=== PATIENT | male | born 1985 | race Caucasian/White ===

== ENCOUNTER 2019-04-27 18:17 | Observation (INO) ==
[2019-04-27] MEDS ORDERED: diazePAM 10 MG/2 ML SYRINGE IVP ONE (18:24)
[2019-04-27] MEDS ORDERED: Thiamine (B-1) 100 MG, Folic Acid 1 MG, MVI, adult with vitamin K 10 ML in 0.9 % Sodi... IVPB SCH (18:30)
[2019-04-27 18:49] LABS: Basophils # 0.1 K/mcL (0.0-0.2); Basophils % 0.6 %; Eosinophils # 0.4 K/mcL (0.0-0.6); Eosinophils % 4.7 %; Hemoglobin 16.3 g/dL (12.9-16.9); Immature Granulocytes % 0.4 % (0-4); Lymphocytes # 1.7 K/mcL (0.6-4.6); Lymphocytes % 19.5 %; Mean Corpuscular HGB Conc 34.7 g/dL (31.6-35.5); Mean Corpuscular Volume 92.3 fL (83.0-100.0); Mean Platelet Volume 8.7 fL (9.4-12.4); Monocytes # 0.4 K/mcL (0.0-1.3); Monocytes % 5.1 %; Platelet Count 260 K/mcL (140-400); Red Blood Count 5.09 M/mcL (4.19-5.50); Red Cell Distribution Width 14.3 % (11.5-14.5); Segmented Neutrophils % 69.7 %; White Blood Count 8.6 K/mcL (4.3-11.1)
[2019-04-27 19:10] LABS: Alanine Aminotransferase 19 Units/L (7-52); Albumin 4.5 g/dL (3.5-5.7); Albumin/Globulin Ratio 1.7 (1.1-2.2); Alkaline Phosphatase 114 Units/L (34-104); Aspartate Amino Transferase 21 Units/L (13-39); BUN/Creatinine Ratio 8 (6-26); Blood Urea Nitrogen 9 mg/dL (6-20); Calcium 9.3 mg/dL (8.6-10.3); Carbon Dioxide 23 mEq/L (23-29); Chloride 105 mEq/L (98-107); Creatine Kinase 171 Units/L (30-223); Globulin 2.6 g/dL (2.4-3.5); Glucose 117 mg/dL (70-105); Lipase 6 Units/L (11-82); Magnesium 1.9 mg/dL (1.6-2.6); Osmolality,Calculated 282 (280-300); Sodium 136 mEq/L (136-145); Total Protein 7.1 g/dL (6.4-8.9); eGFR For African Americans > 60 (> 60); eGFR For Non-African Americans > 60 (> 60)
[2019-04-27] MEDS ORDERED: Ibuprofen 800 MG TABLET PO ONE (19:41)
[2019-04-27] MEDS ORDERED: *HR* LORazepam 2 MG/ML VIAL IVP PRN ×2 (20:51)
[2019-04-27] MEDS: Nicotine 14 MG PATCH.TD24 TD SCH (21:34)
[2019-04-27] MEDS: *HR* LORazepam 2 MG/ML VIAL IVP PRN (21:34)
[2019-04-27 23:22] LABS: Hepatitis B Surface Antigen Nonreactive (Nonreactive)
[2019-04-27 23:51] LABS: Amphetamine Screen,Urine Positive ng/mL (Cutoff=1000); Barbiturate Screen,Urine Negative ng/mL (Cutoff=200); Benzodiazepines Screen,Urine Positive ng/mL (Cutoff=200); Cannabinoid Screen,Urine Negative ng/mL (Cutoff = 50); Cocaine Screen,Urine Negative ng/mL (Cutoff= 300); Opiate Screen,Urine Negative ng/mL (Cutoff=300); Phencyclidine Screen,Urine Negative ng/mL (Cutoff=25)
[2019-04-27 23:51] LABS: HIV-1&2 Antibody & p24 Ag Nonreactive (Nonreactive); Hepatitis C Virus Antibody Nonreactive (Nonreactive)
[2019-04-27 23:52] LABS: Hepatitis B Core IgM Nonreactive (Nonreactive)
[2019-04-27 23:53] LABS: Hepatitis A Antibody IgM Nonreactive (Nonreactive)
[2019-04-28] MEDS: *HR* LORazepam 2 MG/ML VIAL IVP PRN ×2 (00:53→04:15)
[2019-04-28] MEDS: *HR* Heparin 5,000 UNIT/ML VIAL SQ SCH ×3 (05:25→22:35)
[2019-04-28] MEDS: Nicotine 14 MG PATCH.TD24 TD SCH (09:08)
[2019-04-28] MEDS ORDERED: Thiamine (B-1) 100 MG, Folic Acid 1 MG, MVI, adult with vitamin K 10 ML in 0.9 % Sodi... IVPB SCH (18:00)
[2019-04-29] MEDS: *HR* Heparin 5,000 UNIT/ML VIAL SQ SCH ×2 (06:34→06:38)
[2019-04-29] MEDS: Nicotine 14 MG PATCH.TD24 TD SCH (08:28)
[2019-04-29 11:21] VITALS: BP 127/83
== END 2019-04-29 13:35 | disposition home or self-care (01) ==
LOC: 3BNU 18:17 → EMEROOARM 18:17 → SUATTDRO 19:34 → 3BNU 20:00
PROVIDERS: ADMIT Internal Medicine; ATTEND Family Medicine

== ENCOUNTER 2019-09-11 17:26 | Observation (INO) ==
[2019-09-11] MEDS ORDERED: diazePAM 10 MG/2 ML SYRINGE IVP ONE (19:50)
[2019-09-11 20:13] LABS: Basophils # 0.1 K/mcL (0.0-0.2); Basophils % 0.6 %; Eosinophils # 0.4 K/mcL (0.0-0.6); Eosinophils % 3.8 %; Hematocrit 46.8 % (37.5-50.1); Hemoglobin 16.6 g/dL (12.9-16.9); Immature Granulocytes % 0.3 % (0-4); Lymphocytes # 2.7 K/mcL (0.6-4.6); Lymphocytes % 23.2 %; Mean Corpuscular HGB Conc 35.5 g/dL (31.6-35.5); Mean Corpuscular Volume 87.3 fL (83.0-100.0); Mean Platelet Volume 8.9 fL (9.4-12.4); Monocytes # 0.5 K/mcL (0.0-1.3); Monocytes % 4.6 %; Neutrophils # 7.9 K/mcL (1.6-8.9); Platelet Count 349 K/mcL (140-400); Red Blood Count 5.36 M/mcL (4.19-5.50); Red Cell Distribution Width 14.3 % (11.5-14.5); Segmented Neutrophils % 67.5 %; White Blood Count 11.7 K/mcL (4.3-11.1)
[2019-09-11 20:34] LABS: Alanine Aminotransferase 18 Units/L (7-52); Albumin/Globulin Ratio 1.6 (1.1-2.2); Alkaline Phosphatase 107 Units/L (34-104); Aspartate Amino Transferase 17 Units/L (13-39); BUN/Creatinine Ratio 10 (6-26); Bilirubin,Total 0.3 mg/dL (0.3-1.0); Blood Urea Nitrogen 9 mg/dL (6-20); Calcium 8.9 mg/dL (8.6-10.3); Carbon Dioxide 25 mEq/L (23-29); Chloride 109 mEq/L (98-107); Ethanol 99 mg/dL (Less than 10); Globulin 2.5 g/dL (2.4-3.5); Glucose 94 mg/dL (70-105); Magnesium 1.9 mg/dL (1.6-2.6); Osmolality,Calculated 298 (280-300); Potassium 3.7 mEq/L (3.5-5.1); Sodium 145 mEq/L (136-145); Total Protein 6.5 g/dL (6.4-8.9); eGFR For African Americans > 60 (> 60); eGFR For Non-African Americans > 60 (> 60)
[2019-09-11 20:41] LABS: Troponin I < 0.03 ng/mL (< 0.04)
[2019-09-11] MEDS: Thiamine (B-1) 100 MG, Folic Acid 1 MG, MVI, adult with vitamin K 10 ML in 0.9 % Sodi... IVPB SCH (20:44)
[2019-09-11] MEDS ORDERED: 0.9 % Sodium Chloride 500 ML IVC ONE (21:54)
[2019-09-11] MEDS ORDERED: *HR* LORazepam 2 MG/ML VIAL IVP PRN ×2 (22:21)
[2019-09-11 22:46] LABS: Amphetamine Screen,Urine Positive ng/mL (Cutoff=1000); Barbiturate Screen,Urine Negative ng/mL (Cutoff=200); Benzodiazepines Screen,Urine Positive ng/mL (Cutoff=200); Cannabinoid Screen,Urine Negative ng/mL (Cutoff = 50); Cocaine Screen,Urine Negative ng/mL (Cutoff= 300); Opiate Screen,Urine Negative ng/mL (Cutoff=300); Phencyclidine Screen,Urine Negative ng/mL (Cutoff=25)
[2019-09-11] MEDS ORDERED: Naloxone 0.4 MG/ML INJ IVP PRN (22:49)
[2019-09-11] MEDS ORDERED: *HR* Promethazine 25 MG/ML VIAL IVP PRN (22:49)
[2019-09-11 22:51] LABS: Amylase 57 Units/L (29-103); Lipase 27 Units/L (11-82)
[2019-09-11 23:02] LABS: Bilirubin,Urine Negative (Negative); Blood,Urine Negative (Negative); Clarity,Urine Clear (Clear); Color,Urine Yellow (Yellow); Glucose,Urine (UA) Normal (Normal); Ketones,Urine Negative (Negative); Leukocyte Esterase,Urine Negative (Negative); Nitrite,Urine Negative (Negative); Protein,Urine Negative (Neg-Trace); Specific Gravity,Urine 1.026 (1.010-1.025); Urobilinogen,Urine Normal (Normal)
[2019-09-12 00:38] LABS: Adenovirus Not Detected (Not Detect); Bordetella Pertussis Not Detected (Not Detect); Chlamydophila pneumoniae Not Detected (Not Detect); Coronavirus 229E Not Detected (Not Detect); Coronavirus HKU1 Not Detected (Not Detect); Coronavirus NL63 Not Detected (Not Detect); Coronavirus OC43 Not Detected (Not Detect); Human Metapneumovirus Not Detected (Not Detect); Human Rhinovirus/Enterovirus Not Detected (Not Detect); Influenza A Subtype 2009 H1 Not Detected (Not Detect); Influenza B Not Detected (Not Detect); Mycoplasma pneumoniae Not Detected (Not Detect); Parainfluenza Virus 1 Not Detected (Not Detect); Parainfluenza Virus 2 Not Detected (Not Detect); Parainfluenza Virus 3 Not Detected (Not Detect); Parainfluenza Virus 4 Not Detected (Not Detect); Respiratory Syncytial Virus Not Detected (Not Detect)
[2019-09-12] MEDS: 0.9 % Sodium Chloride 1,000 ML IVC SCH (03:27)
[2019-09-12] MEDS: Nicotine 14 MG PATCH.TD24 TD SCH ×2 (03:27→10:58)
[2019-09-12] MEDS: *HR* Heparin 5,000 UNIT/ML VIAL SQ SCH ×3 (06:10→19:31)
[2019-09-12 10:38] LABS: Hematocrit 45.4 % (37.5-50.1); Hemoglobin 15.1 g/dL (12.9-16.9); Mean Corpuscular HGB Conc 33.3 g/dL (31.6-35.5); Mean Corpuscular Hemoglobin 30.5 pg (28.0-33.3); Mean Corpuscular Volume 91.7 fL (83.0-100.0); Mean Platelet Volume 8.9 fL (9.4-12.4); Platelet Count 261 K/mcL (140-400); Red Blood Count 4.95 M/mcL (4.19-5.50); Red Cell Distribution Width 14.3 % (11.5-14.5); White Blood Count 8.8 K/mcL (4.3-11.1)
[2019-09-12 10:57] LABS: BUN/Creatinine Ratio 11 (6-26); Blood Urea Nitrogen 9 mg/dL (6-20); Calcium 8.2 mg/dL (8.6-10.3); Carbon Dioxide 27 mEq/L (23-29); Chloride 111 mEq/L (98-107); Glucose 84 mg/dL (70-105); Osmolality,Calculated 290 (280-300); Potassium 4.2 mEq/L (3.5-5.1); Sodium 141 mEq/L (136-145); eGFR For African Americans > 60 (> 60); eGFR For Non-African Americans > 60 (> 60)
[2019-09-12] MEDS: hydrOXYzine pamoate 25 MG CAPSULE PO SCH ×3 (11:37→20:02)
[2019-09-12] MEDS: BuPROPion SR (12 HR) 150 MG TABLET PO SCH ×2 (11:37→20:02)
[2019-09-12] MEDS: OXcarbazepine 150 MG TABLET PO SCH ×2 (11:38→20:01)
[2019-09-12] MEDS: Thiamine (B-1) 100 MG, Folic Acid 1 MG, MVI, adult with vitamin K 10 ML in 0.9 % Sodi... IVPB SCH (17:06)
[2019-09-12] MEDS: *HR* LORazepam 2 MG/ML VIAL IVP PRN (20:08)
[2019-09-13] MEDS: *HR* Heparin 5,000 UNIT/ML VIAL SQ SCH ×2 (01:04→13:42)
[2019-09-13] MEDS: Nicotine 14 MG PATCH.TD24 TD SCH (08:11)
[2019-09-13] MEDS: OXcarbazepine 150 MG TABLET PO SCH (08:12)
[2019-09-13] MEDS: BuPROPion SR (12 HR) 150 MG TABLET PO SCH (08:12)
[2019-09-13] MEDS: hydrOXYzine pamoate 25 MG CAPSULE PO SCH ×2 (08:12→13:45)
[2019-09-13] MEDS ORDERED: 0.9 % Sodium Chloride 1,000 ML ONE (08:14)
[2019-09-13] MEDS: 0.9 % Sodium Chloride 1,000 ML IVC SCH (08:17)
[2019-09-13] MEDS: *HR* LORazepam 2 MG/ML VIAL IVP PRN ×2 (13:45→17:49)
[2019-09-13 15:56] VITALS: BP 118/72
[2019-09-13] MEDS: Thiamine (B-1) 100 MG, Folic Acid 1 MG, MVI, adult with vitamin K 10 ML in 0.9 % Sodi... IVPB SCH (17:35)
[2019-09-13 17:39] LABS: Hematocrit 44.5 % (37.5-50.1); Hemoglobin 15.9 g/dL (12.9-16.9); Mean Corpuscular HGB Conc 35.7 g/dL (31.6-35.5); Mean Corpuscular Hemoglobin 30.9 pg (28.0-33.3); Mean Corpuscular Volume 86.4 fL (83.0-100.0); Mean Platelet Volume 8.7 fL (9.4-12.4); Platelet Count 284 K/mcL (140-400); Red Blood Count 5.15 M/mcL (4.19-5.50); Red Cell Distribution Width 13.8 % (11.5-14.5); White Blood Count 8.8 K/mcL (4.3-11.1)
[2019-09-13 18:02] LABS: BUN/Creatinine Ratio 7 (6-26); Blood Urea Nitrogen 7 mg/dL (6-20); Calcium 8.7 mg/dL (8.6-10.3); Carbon Dioxide 25 mEq/L (23-29); Chloride 107 mEq/L (98-107); Glucose 124 mg/dL (70-105); Osmolality,Calculated 287 (280-300); Potassium 3.7 mEq/L (3.5-5.1); Sodium 139 mEq/L (136-145); eGFR For African Americans > 60 (> 60); eGFR For Non-African Americans > 60 (> 60)
== END 2019-09-13 18:45 | disposition left against medical advice (07) ==
LOC: EMEROOARM 17:26 → CDU 17:26 → 3BNU 09-12 16:35
PROVIDERS: ADMIT Internal Medicine; ATTEND Internal Medicine

== ENCOUNTER 2019-09-22 12:50 | Observation (INO) ==
[2019-09-22] MEDS ORDERED: *HR* LORazepam 2 MG/ML VIAL IVP ONE (13:02)
[2019-09-22] MEDS ORDERED: Ondansetron 4 MG/2 ML VIAL IVP ONE (13:02)
[2019-09-22] MEDS ORDERED: 0.9 % Sodium Chloride 1,000 ML IVC ONE (13:02)
[2019-09-22 13:24] LABS: Basophils # 0.1 K/mcL (0.0-0.2); Basophils % 0.8 %; Eosinophils # 0.6 K/mcL (0.0-0.6); Eosinophils % 4.2 %; Hematocrit 45.3 % (37.5-50.1); Hemoglobin 16.2 g/dL (12.9-16.9); Immature Granulocytes % 0.3 % (0-4); Lymphocytes % 23.3 %; Mean Corpuscular HGB Conc 35.8 g/dL (31.6-35.5); Mean Corpuscular Volume 86.8 fL (83.0-100.0); Mean Platelet Volume 8.6 fL (9.4-12.4); Monocytes # 0.5 K/mcL (0.0-1.3); Monocytes % 3.7 %; Neutrophils # 8.8 K/mcL (1.6-8.9); Platelet Count 308 K/mcL (140-400); Red Blood Count 5.22 M/mcL (4.19-5.50); Red Cell Distribution Width 14.3 % (11.5-14.5); Segmented Neutrophils % 67.7 %
[2019-09-22 13:45] LABS: Alanine Aminotransferase 16 Units/L (7-52); Albumin/Globulin Ratio 1.7 (1.1-2.2); Alkaline Phosphatase 110 Units/L (34-104); Aspartate Amino Transferase 16 Units/L (13-39); BUN/Creatinine Ratio 8 (6-26); Bilirubin,Total 0.3 mg/dL (0.3-1.0); Blood Urea Nitrogen 8 mg/dL (6-20); Calcium 8.2 mg/dL (8.6-10.3); Carbon Dioxide 23 mEq/L (23-29); Chloride 106 mEq/L (98-107); Ethanol 189 mg/dL (Less than 10); Globulin 2.3 g/dL (2.4-3.5); Glucose 103 mg/dL (70-105); Osmolality,Calculated 291 (280-300); Potassium 4.2 mEq/L (3.5-5.1); Sodium 141 mEq/L (136-145); Total Protein 6.3 g/dL (6.4-8.9); eGFR For African Americans > 60 (> 60); eGFR For Non-African Americans > 60 (> 60)
[2019-09-22 15:31] LABS: Amphetamine Screen,Urine Positive ng/mL (Cutoff=1000); Barbiturate Screen,Urine Negative ng/mL (Cutoff=200); Benzodiazepines Screen,Urine Positive ng/mL (Cutoff=200); Cannabinoid Screen,Urine Negative ng/mL (Cutoff = 50); Cocaine Screen,Urine Negative ng/mL (Cutoff= 300); Opiate Screen,Urine Negative ng/mL (Cutoff=300); Phencyclidine Screen,Urine Negative ng/mL (Cutoff=25)
[2019-09-22] MEDS ORDERED: *HR* LORazepam 2 MG/ML VIAL IVP PRN ×2 (15:51→16:22)
[2019-09-22] MEDS ORDERED: *HR* Promethazine 25 MG/ML VIAL IVP PRN (15:51)
[2019-09-22] MEDS ORDERED: Naloxone 0.4 MG/ML INJ IVP PRN (15:54)
[2019-09-22 17:23] LABS: Amylase 31 Units/L (29-103); Lipase 30 Units/L (11-82)
[2019-09-22] MEDS: *HR* LORazepam 2 MG/ML VIAL IVP PRN (17:39)
[2019-09-22] MEDS: Thiamine (B-1) 100 MG, Folic Acid 1 MG, MVI, adult with vitamin K 10 ML in 0.9 % Sodi... IVPB SCH (18:56)
[2019-09-22] MEDS: Vitamin B Complex/Vit C/Vit E 1 EACH TABLET PO SCH (21:06)
[2019-09-22] MEDS: *HR* Heparin 5,000 UNIT/ML VIAL SQ SCH (21:06)
[2019-09-22] MEDS: Thiamine (B-1) 100 MG TABLET PO SCH (21:06)
[2019-09-23] MEDS: *HR* Heparin 5,000 UNIT/ML VIAL SQ SCH ×5 (05:50→21:38)
[2019-09-23] MEDS: *HR* LORazepam 2 MG/ML VIAL IVP PRN (05:54)
[2019-09-23] MEDS: Vitamin B Complex/Vit C/Vit E 1 EACH TABLET PO SCH (09:17)
[2019-09-23] MEDS: Thiamine (B-1) 100 MG TABLET PO SCH (09:17)
[2019-09-23] MEDS: Folic Acid 1 MG TABLET PO SCH (09:17)
[2019-09-23] MEDS ORDERED: Nicotine 2 MG GUM BC PRN (11:50)
[2019-09-23] MEDS: OXcarbazepine 150 MG TABLET PO SCH ×2 (14:12→20:11)
[2019-09-23] MEDS: Nicotine 21 MG PATCH.TD24 TD PRN (14:17)
[2019-09-23] MEDS: Thiamine (B-1) 100 MG, Folic Acid 1 MG, MVI, adult with vitamin K 10 ML in 0.9 % Sodi... IVPB SCH (18:11)
[2019-09-24 07:08] LABS: BUN/Creatinine Ratio 9 (6-26); Blood Urea Nitrogen 8 mg/dL (6-20); Carbon Dioxide 30 mEq/L (23-29); Chloride 105 mEq/L (98-107); Glucose 97 mg/dL (70-105); Magnesium 1.9 mg/dL (1.6-2.6); Osmolality,Calculated 290 (280-300); Phosphorous 2.8 mg/dL (2.7-4.5); Potassium 3.8 mEq/L (3.5-5.1); Sodium 141 mEq/L (136-145); eGFR For African Americans > 60 (> 60); eGFR For Non-African Americans > 60 (> 60)
[2019-09-24] MEDS: Vitamin B Complex/Vit C/Vit E 1 EACH TABLET PO SCH (09:47)
[2019-09-24] MEDS: Folic Acid 1 MG TABLET PO SCH (09:47)
[2019-09-24] MEDS: OXcarbazepine 150 MG TABLET PO SCH (09:47)
[2019-09-24] MEDS: Nicotine 21 MG PATCH.TD24 TD PRN (09:47)
[2019-09-24] MEDS: Thiamine (B-1) 100 MG TABLET PO SCH (09:47)
[2019-09-24 12:03] VITALS: BP 119/70
== END 2019-09-24 13:18 | disposition left against medical advice (07) ==
LOC: 3BNU 12:50 → EMEROOARM 12:50 → SUATTDRO 20:02 → 3BNU 20:25
PROVIDERS: ADMIT Internal Medicine; ATTEND Internal Medicine

== ENCOUNTER 2019-10-05 23:12 | Observation (INO) ==
[2019-10-06] MEDS ORDERED: 0.9 % Sodium Chloride 1,000 ML IVC ONE (00:22)
[2019-10-06] MEDS ORDERED: *HR* LORazepam 2 MG/ML VIAL IVP ONE (00:22)
[2019-10-06 00:40] LABS: Bilirubin,Urine Negative (Negative); Blood,Urine Negative (Negative); Clarity,Urine Clear (Clear); Color,Urine Yellow (Yellow); Glucose,Urine (UA) Normal (Normal); Ketones,Urine Negative (Negative); Leukocyte Esterase,Urine Negative (Negative); Nitrite,Urine Negative (Negative); PH,Urine 5.5 pH Units (5.0-8.0); Protein,Urine Negative (Neg-Trace); Urobilinogen,Urine Normal (Normal)
[2019-10-06 00:49] LABS: Amphetamine Screen,Urine Negative ng/mL (Cutoff=1000); Barbiturate Screen,Urine Negative ng/mL (Cutoff=200); Benzodiazepines Screen,Urine Negative ng/mL (Cutoff=200); Cannabinoid Screen,Urine Negative ng/mL (Cutoff = 50); Cocaine Screen,Urine Negative ng/mL (Cutoff= 300); Opiate Screen,Urine Negative ng/mL (Cutoff=300); Phencyclidine Screen,Urine Negative ng/mL (Cutoff=25)
[2019-10-06 01:00] LABS: Basophils # 0.1 K/mcL (0.0-0.2); Basophils % 0.9 %; Eosinophils # 0.5 K/mcL (0.0-0.6); Eosinophils % 6.1 %; Hematocrit 47.3 % (37.5-50.1); Hemoglobin 16.4 g/dL (12.9-16.9); Immature Granulocytes % 0.3 % (0-4); Lymphocytes # 3.4 K/mcL (0.6-4.6); Lymphocytes % 43.6 %; Mean Corpuscular HGB Conc 34.7 g/dL (31.6-35.5); Mean Corpuscular Hemoglobin 31.7 pg (28.0-33.3); Mean Corpuscular Volume 91.3 fL (83.0-100.0); Mean Platelet Volume 8.7 fL (9.4-12.4); Monocytes # 0.7 K/mcL (0.0-1.3); Monocytes % 8.4 %; Neutrophils # 3.2 K/mcL (1.6-8.9); Platelet Count 307 K/mcL (140-400); Red Blood Count 5.18 M/mcL (4.19-5.50); Red Cell Distribution Width 14.2 % (11.5-14.5); Segmented Neutrophils % 40.7 %; White Blood Count 7.8 K/mcL (4.3-11.1)
[2019-10-06 01:18] LABS: Alanine Aminotransferase 20 Units/L (7-52); Albumin 4.2 g/dL (3.5-5.7); Albumin/Globulin Ratio 1.8 (1.1-2.2); Alkaline Phosphatase 93 Units/L (34-104); Aspartate Amino Transferase 13 Units/L (13-39); BUN/Creatinine Ratio 9 (6-26); Bilirubin,Total 0.3 mg/dL (0.3-1.0); Blood Urea Nitrogen 8 mg/dL (6-20); Calcium 8.4 mg/dL (8.6-10.3); Carbon Dioxide 25 mEq/L (23-29); Chloride 106 mEq/L (98-107); Ethanol 198 mg/dL (Less than 10); Globulin 2.3 g/dL (2.4-3.5); Glucose 112 mg/dL (70-105); Osmolality,Calculated 289 (280-300); Potassium 3.5 mEq/L (3.5-5.1); Sodium 140 mEq/L (136-145); Total Protein 6.5 g/dL (6.4-8.9); eGFR For African Americans > 60 (> 60); eGFR For Non-African Americans > 60 (> 60)
[2019-10-06] MEDS ORDERED: Naloxone 0.4 MG/ML INJ IVP PRN (01:48)
[2019-10-06] MEDS ORDERED: *HR* LORazepam 2 MG/ML VIAL IVP PRN ×3 (02:02)
[2019-10-06] MEDS ORDERED: Thiamine (B-1) 100 MG TABLET PO SCH (09:00)
[2019-10-06] MEDS ORDERED: Folic Acid 1 MG TABLET PO SCH (09:00)
[2019-10-06 18:38] VITALS: BP 119/56
[2019-10-06] MEDS ORDERED: OXcarbazepine 150 MG TABLET PO SCH (21:00)
== END 2019-10-06 21:00 | disposition home or self-care (01) ==
LOC: 3BNU 23:12 → EMEROOARM 23:12 → SUATTDRO 10-06 02:55 → 3BNU 10-06 03:37
PROVIDERS: ADMIT Family Medicine; ATTEND Internal Medicine